=== PATIENT | female | born 1940 ===

== ENCOUNTER 2024-07-09 06:39 | Day surgery (SDC) | payer OTHER ==
[2024-07-02 10:17] VITALS: BP 134/70
[2024-07-02 10:25] LABS: PH,URINE 7.5 (5.0-8.0); URINE APPEARANCE Clear; URINE BILIRRUBIN Negative (NEGATIVE); URINE BLOOD Negative; URINE COLOR Yellow; URINE GLUCOSE Negative (NEGATIVE); URINE KETONE Negative (NEGATIVE); URINE LEUKOCYTE Moderate; URINE NITRATE Negative; URINE PROTEIN Negative (NEGATIVE); URINE UROBILINOGEN 0.2 E.U./dl
[2024-07-02 10:28] LABS: URINE BACTERIA 86.8 uL (0.0-1933); URINE EPITHELIAL CELLS 7.9 uL (0.0-38.8); URINE WBC 13.2 uL (0.0-23.2)
[2024-07-02 10:34] LABS: HEMATOCRIT 35.1 % (36.0-45.00); HEMOGLOBIN 12.1 g/dL (12.0-15.00); MEAN CELL VOLUME 86.5 fL (80.00-100.00); MEAN CORPUSCULAR HEMOGLOBIN 29.7 pg (27.00-32.0); MEAN CORPUSCULAR HGB CONC 34.4 g/dl (32.0-36.0); PLATELET COUNT 310 K/uL (150-450); RED BLOOD COUNT 4.06 M/uL (4.00-6.00); RED CELL DISTRIBUTION WIDTH 14.8 % (11.5-14.5)
[2024-07-02 11:01] LABS: URINE CAST 0.44 uL (0.0-1.40); URINE RBC 1.7 uL (0.0-20.8)
[2024-07-02 11:05] LABS: CALCIUM 10.3 mg/dL (8.5-10.1); CREATININE SERUM 0.96 mg/dL (0.55-1.02); GFR 55.11; POTASSIUM 3.65 mEq/L (3.5-5.1)
[2024-07-02 11:08] LABS: INR 1.02; PARTIAL THROMBOPLASTIN TIME 27.1 SECONDS (22.0-34.0); PROTHROMBIN TIME 11.1 SECONDS (9.0-11.5)
[~2024-07-09] VITALS: Ht 160 cm; Wt 53.5 kg
[~2024-07-09 06:39] MED LIST: AMLODIPINE-OLM1 EAC2; BRIMONIDINE TART5 ML; LEVO-T100 MCG PO; LOSARTAN-HCTZ1 EAC1 PO; METFORMIN HCL500 M3 PO; PREDNISOLONE ACE5 M1; SIMVASTATIN5 MG; VITAMIN D310 MCG/1 M
[2024-07-09] MEDS ORDERED: METRONIDAZOLE/SODIUM CHLORIDE 500 MG/100 ML PIGGYBACK IV ONE (13:45)
[2024-07-09] MEDS ORDERED: ENOXAPARIN SODIUM 40 MG/0.4 ML SYRINGE SUBCUTANEO ONE (13:45)
[2024-07-09] MEDS ORDERED: CEFTRIAXONE SODIUM 2,000 MG VIAL IV ONE (13:45)
[2024-07-09] MEDS ORDERED: PERCOCET 5-3251 EACH PO (15:56)
[2024-07-09] MEDS ORDERED: AMOX-CLAV 875-1 EACH PO (15:57)
[2024-07-09] MEDS ORDERED: PROTONIX40 MG PO (15:58)
[2024-07-09] MEDS ORDERED: INTESTINEX680 M1 PO (15:58)
[2024-07-09] MEDS ORDERED: MORPHINE SULFATE 2 MG/ML CARTRIDGE IV ONE ×2 (16:50→17:10)
== END 2024-07-09 18:00 | disposition home or self-care (01) ==
LOC: CIR.AMB 06:39
PROVIDERS: ATTEND Surgery
DX: K80.12 Calculus of gallbladder with acute and chronic cholecystitis without obstruction (principal); E11.9 Type 2 diabetes mellitus without complications; I10 Essential (primary) hypertension; E78.00 Pure hypercholesterolemia, unspecified; Z91.041 Radiographic dye allergy status; Z91.013 Allergy to seafood